=== PATIENT | female | born 1935 | race Caucasian/White ===

== ENCOUNTER 2016-08-13 12:50 | Emergency (ER) | payer MEDICARE, BC ==
--- NOTE | ~2016-08-13 | ER ---
PATIENT'S NAME: RYANNE HILL [facility] AGE: 81 Y [address] ROOM: [place] [address] LOCATION: ED ADMIT DATE: 08/13/2016 ER/Outpatient Report DISCHARGE DATE: 08/13/2016 FAMILY PHYSICIAN: Cristel Smith MD ATTENDING PHYSICIAN: Jorge Arcos Time of Arrival: 1250 hours. Time of Evaluation: 1250 hours. IDENTIFICATION: An 81-year-old female. CHIEF COMPLAINT: Syncopal episode. HISTORY OF PRESENT ILLNESS: The patient is an 81-year-old female, who was at physical therapy. She said that they had placed some sort of a heating pad over her arm. She felt like she had to have a bowel movement, has kind of some rumbling in her abdomen, that did pass, but she felt lightheaded and she passed out. When EMS arrived, she was awake and alert. Blood pressure 87/42. No chest pain. The most recent change just yesterday was changed from lisinopril to irbesartan. She did take a dose last night. No history of coronary artery disease. ALLERGIES: TO NICKEL. MEDICATIONS: 1. Omeprazole 20 mg daily. 2. Simvastatin 20 mg daily. 3. Irbesartan 300 mg at h.s., just started yesterday. 4. Symbicort 160/4.5 two puffs b.i.d. 5. Ventolin p.r.n. 6. Spiriva 1 puff at noon. 7. Centrum Silver. 8. Vitamin D. 9. Mucinex DM. 10. Tylenol. MEDICAL PROBLEMS: COPD, gastroesophageal reflux disease, hyperlipidemia, hypertension, left shoulder injury 1 week ago. PRIOR SURGERIES: Lump removed from throat and left ankle surgery. PATIENT'S NAME: RYANNE HILL [facility] AGE: 81 Y [address] ROOM: [place] [address] LOCATION: ED ADMIT DATE: 08/13/2016 ER/Outpatient Report DISCHARGE DATE: 08/13/2016 FAMILY PHYSICIAN: Cristel Smith MD ATTENDING PHYSICIAN: Jorge Arcos SOCIAL HISTORY: The patient is . Lives here in [place]. She is retired. Tobacco use, 5 cigarettes per day for 60 years. Alcohol use, 2 days per week. Drug use, denies. FAMILY HISTORY: No family history of premature coronary artery disease. REVIEW OF SYSTEMS: All systems reviewed and negative other than what is noted in the HPI. The patient when she got here was a little slow to respond. She did state that she felt her brain felt fuzzy at that time. She is awake and alert at this time. PHYSICAL EXAMINATION: VITAL SIGNS: Weight 77.1 kg, blood pressure 135/58, pulse 78, respirations 18, temperature 97.8, and saturations 91% on 2 L per nasal cannula. GENERAL: An 81-year-old female, in no acute distress, although little bit of slow and lethargic at first. HEENT: Head: Normocephalic atraumatic. Ears: TMs translucent both ears. Eyes: Pupils equal and reactive to light and accommodation. Extraocular movements intact. Nose: Mucosa pink. No lesions or drainage. Mouth: No lesions. Pharynx benign. NECK: Supple. No lymphadenopathy. LUNGS: Clear to auscultation. Breath sounds are equal. HEART: Regular rate and rhythm. No murmur, rub, or gallop. ABDOMEN: Bowel sounds present. Soft, nondistended. No hepatosplenomegaly. No palpable masses. Nontender. SKIN: [place], warm, and dry. No lesions or rashes noted. NEURO: The patient is alert and oriented x4. Cranial nerves 2 through 12 grossly intact. Motor strength 5/5 throughout. Sensation is intact to light touch. EXTREMITIES: Trace of lower extremity edema. No calf tenderness. Weakness in her left upper extremity secondary to pain in her shoulder. LABORATORY DATA AND X-RAYS: Initial EKG at 1:14 p.m., normal sinus rhythm at 67 beats per minute. Right bundle branch block. No previous EKG available for comparison. Lateral nonspecific ST-T wave changes. Repeat EKG at 1508 hours, normal sinus rhythm at 76 beats per minute, right bundle branch block, and no acute differences compared to earlier EKG. Hemoglobin 13.7, hematocrit 41.5, platelets 307, white count 11.1 with a normal differential. INR 1.02. Chest x-ray one-view, no acute process. Pending Radiology over-read. Head CT without contrast, no acute findings per PATIENT'S NAME: RYANNE HILL [facility] AGE: 81 Y [address] ROOM: [place] [address] LOCATION: [facility] ADMIT DATE: 08/13/2016 ER/Outpatient Report DISCHARGE DATE: 08/13/2016 FAMILY PHYSICIAN: Cristel Smith MD ATTENDING PHYSICIAN: Jorge Arcos Radiology. Sodium 145, potassium 3.5, chloride 110, CO2 of 28, BUN 24, creatinine 1.2, blood sugar 168, liver enzymes normal. Magnesium 2.2. CPK 82, CK-MB 1.7, troponin I less than 0.010. Hemoglobin 13.7, hematocrit 41.5, platelets 307, white count 11.1. Two-hour enzymes; CPK 86, CK-MB 1.5, troponin I less than 0.040. IMPRESSION: 1. Vasovagal response. 2. Right bundle branch block. PLAN: Home. Rest and fluids. Follow up with recurrent symptoms. While the patient was here, she did have a little unsettled stomach. She was given a GI cocktail with resolution of those symptoms, and she states that she has not taken her omeprazole in the last couple of days. She will resume that daily. All questions have been answered, and I did discuss this with Dr. Watters, who is on-call for Dr. Hoskins, whom she said she saw in the clinic, but she has also seen Dr. Smith. She will follow up with Dr. Hoskins or Dr. Smith in 1 day. Follow up sooner if any problems or concerns. JORGE ARCOS MD CAR/modl /[id number] d: 08/13/[id number] t: 08/14/16 0800, OUTPATIENT REPORT
[2016-08-13 13:23] LABS: BASOPHIL # 0.1 K/uL (0.0-0.2); BASOPHIL % 0.5 %; EOSINOPHIL # 0.2 K/uL (0.0-0.5); EOSINOPHIL % 1.4 %; HEMATOCRIT 41.5 % (30.0-46.0); HEMOGLOBIN 13.7 g/dL (10.0-15.0); IMMATURE GRANULOCYTE % 0.4 %; LYMPHOCYTE # 1.5 K/uL (0.8-4.0); LYMPHOCYTE % 13.8 %; MCH 30.3 pg (27.0-34.0); MCV 91.8 fl (83.0-98.0); MONOCYTE # 0.7 K/uL (0.0-1.0); MONOCYTE % 6.4 %; MPV 9.9 fl (9.4-12.4); NEUTROPHIL # (ANC) 8.6 K/uL (1.8-7.8); NEUTROPHIL % 77.5 %; NRBC % 0 /100WBC (0-0.00); PLATELET COUNT 307 K/uL (150-450); RBC 4.52 M/uL (3.00-5.00); RDW-CV 12.3 % (11.9-14.6); WBC 11.1 K/uL (4.0-11.0)
[2016-08-13 13:33] LABS: INR - (THERAPEUTIC) 1.02 (0.92-1.07); PROTIME 10.7 SECONDS (9.8-11.4); PTT 26 SECONDS (25-32)
[2016-08-13 13:44] LABS: ALBUMIN 3.1 gm/dL (3.5-5.0); ALK PHOS 74 IU/L (33-138); ALT 24 IU/L (12-78); ANION GAP 10.5 (10.0-19.0); AST 17 IU/L (10-40); BLOOD UREA NITROGEN 24 mg/dL (6-24); CHLORIDE 110 mMol/L (96-110); CO2 28 mMol/L (22-32); CPK 82 IU/L (21-215); CREATININE 1.2 mg/dL (0.5-1.1); ESTIMATED GFR (MDRD EQUATION) 43; MAGNESIUM 2.2 mg/dL (1.8-2.6); POTASSIUM 3.5 mMol/L (3.7-5.1); SODIUM 145 mMol/L (135-145); TOTAL BILIRUBIN 0.6 mg/dL (0.0-1.5); TOTAL PROTEIN 6.5 g/dL (6.0-8.4)
[2016-08-13 15:26] LABS: CPK 86 IU/L (21-215)
== END 2016-08-13 16:23 | disposition disaster alternative care site (69) ==
LOC: GMED 12:50
PROVIDERS: Family Medicine
DX: I45.10 Unspecified right bundle-branch block (principal); J44.9 Chronic obstructive pulmonary disease, unspecified; K21.9 Gastro-esophageal reflux disease without esophagitis; E78.5 Hyperlipidemia, unspecified; I10 Essential (primary) hypertension; Z79.899 Other long term (current) drug therapy

== ENCOUNTER → 2016-08-13 | Outpatient (CLI) | payer MEDICARE, BC | END | disposition disaster alternative care site (69) | LOC: GAMB 12:29 | DX: R55 Syncope and collapse (principal); R40.20 Unspecified coma; R53.1 Weakness | CPT/HCPCS: A0425; A0427; J7030 ==

== ENCOUNTER → 2016-08-31 | Outpatient (CLI) | payer MEDICARE, BC | LOC: LHSC 10:34 | DX: K63.5 Polyp of colon (principal); R19.5 Other fecal abnormalities ==